=== PATIENT | female | born 1965 | race Caucasian/White ===

== ENCOUNTER 2018-05-01 06:58 | Emergency (ER) | payer BC ==
[~2018-05-01] VITALS: Ht 177.8 cm; Wt 83.0 kg
[2018-05-01] MEDS ORDERED: SODIUM CHLORIDE FLUSH 10ML SYR IVF ONE (07:30)
[2018-05-01] MEDS ORDERED: ONDANSETRON ODT 4 MG PO ONE (07:30)
[2018-05-01] MEDS ORDERED: MORPHINE SULFATE 4 MG/ML, 1ML ONE ×2 (07:37→08:22)
[2018-05-01] MEDS ORDERED: ONDANSETRON ODT 4 MG ONE (07:38)
[2018-05-01] MEDS: MORPHINE SULFATE 4 MG/ML, 1ML IVPush PRN ×2 (07:43→08:24)
[2018-05-01] MEDS ORDERED: TOLT2CAP22 PO (07:53)
[2018-05-01] MEDS ORDERED: LEVO88TA2 PO (07:53)
[2018-05-01] MEDS ORDERED: BUPR-86 PO (07:53)
[2018-05-01 09:50] VITALS: BP 109/56
== END 2018-05-01 10:01 | disposition home or self-care (01) ==
LOC: ED 07:45
DX: S16.1XXA Strain of muscle, fascia and tendon at neck level, initial encounter (principal); S39.012A Strain of muscle, fascia and tendon of lower back, initial encounter; S46.912A Strain of unspecified muscle, fascia and tendon at shoulder and upper arm level, left arm, initial encounter; S76.012A Strain of muscle, fascia and tendon of left hip, initial encounter; X58.XXXA Exposure to other specified factors, initial encounter; Y93.89 Activity, other specified; Y92.89 Other specified places as the place of occurrence of the external cause; Y99.8 Other external cause status
CPT/HCPCS: 72125; 72128; 72131; 73030; 73502; 96374; 96376; 99284; Q0162